=== PATIENT | male | born 1945 | race Caucasian/White ===

== ENCOUNTER 2017-02-07 08:34 | Day surgery (SDC) | payer MEDICARE, BC ==
[~2017-02-07] VITALS: Ht 177.8 cm; Wt 100.0 kg
[~2017-02-07 08:34] MED LIST: ALDACTONE25 MG PO; ASPIRIN 81 MG E81 MG PO; BUMEX2 MG PO; CORDARONE200 MG PO; COREG6.25 MG PO; COZAAR25 MG PO; LANOXIN125 MCG PO; LIPITOR40 MG PO; RESTORIL7.5 MG PO
[2017-02-07] MEDS ORDERED: AMBIEN10 MG PO (10:34)
[2017-02-07] MEDS ORDERED: ZANAFLEX4 MG PO (10:35)
[2017-02-07 10:44] VITALS: BP 104/56; Ht 177.8 cm; Wt 100.0 kg
[2017-02-07 11:28] LABS: HEMATOCRIT 40.7 % (42.0-54.0); HEMOGLOBIN 13.8 g/dL (13.5-17.5); MCH 30.4 pg (26.0-34.0); MCHC 33.9 g/dL (31.0-37.0); MCV 89.6 fL (80.0-100.0); MEAN PLATELET VOLUME 9.9 fL (7.4-10.4); RBC 4.54 10x6/uL (4.20-6.10); RDW 14.9 % (11.5-14.5); WBC 5.5 10x3/uL (4.8-10.8)
--- NOTE | 2017-02-07 11:32 | NUR ---
1132-MAGNET APPLIED TO AICD/PACEMAKER BY Louis CALIXTO INVASIVE CARDIOLOGIST
--- NOTE | 2017-02-07 11:37 | NUR ---
1137-SPOKE WITH PILLO ([facility])STATES AFTER CAUTERY COMPLETE, REMOVE MAGNET FROM AICD/PACEMATER & NO FURTHER CALIBRATION NEEDED.
[2017-02-07 11:38] LABS: ANION GAP 15.4 mmol/L (8-16); CALCIUM 8.9 mg/dL (8.5-10.1); CARBON DIOXIDE 26.9 mmol/L (21.0-32.0); CREATININE - SERUM 1.3 mg/dL (0.6-1.3); POTASSIUM - SERUM 4.3 mmol/L (3.5-5.1)
--- NOTE | 2017-02-07 13:10 | NUR ---
DISCHARGE INSTRUCTIONS REVIEWED WITH PATIENT AND SPOUSE. DISCHARGED HOME VIA WHEELCHAIR TO PRIVATE VEHICLE WITH SPOUSE
--- NOTE | 2017-02-08 09:13 | PRO ---
PATIENT:AUGUSTIN FINNEGAN MEDICAL RECORD: [id number] : 47 LOCATION:[facility] ADMISSION DATE: 02/07/17 PROCEDURE PERFORMED BY: GAEL KAPOOR DO DATE OF PROCEDURE: 02/07/2017 PROCEDURE: Colonoscopy with polypectomy. INDICATIONS FOR PROCEDURE: Family history positive for cancer of the GI tract, gas and bloating, polyp of the colon in past examinations. SCOPE: Olympus video pediatric colonoscope. MEDICATIONS: Propofol 250 mg IV per anesthesia. WITHDRAWAL TIMIE: 9 minutes. ESTIMATED BLOOD LOSS: Minimal. COMPLICATIONS: None. LAST COLONOSCOPY: 08/09/2013. FINDINGS: Informed consent was given. The patient was made comfortable with the above medication. After reaching an adequate level of sedation by slow IV push, the patient was placed on his left side. A digital rectal examination was performed. There were moderate sized external hemorrhoids without active bleeding present on the digital rectal examination. The endoscope was then advanced under direct visualization through the rectum to the cecum with visualization of the appendiceal orifice and ileocecal valve. The scope was slowly withdrawn and mucosa was carefully examined. Prep quality was good. There was 1 benign-appearing sessile polyp located in the ascending colon which measured approximately 3-4 mm in diameter. It was removed using a hot snare in 1 piece and completely retrieved. There were 2 polyps in the transverse colon which were benign-appearing and sessile. They ranged in size from 3 mm-6 mm in diameter. They were both removed using hot snare in 1 piece and completely retrieved. There was evidence of moderate to severe diverticulosis from the distal transverse colon distally to the sigmoid colon. There was no evidence of diverticulitis. Retroflexion was performed in the rectum with visualization of moderate sized internal hemorrhoids without bleeding stigmata. The scope was then withdrawn from the patient. The patient tolerated the procedure well and there were no complications. IMPRESSIONS: 1. Multiple polyps as described above, removed using hot snare. 2. Moderate to severe diverticulosis of the left side of the colon. 3. Moderate sized internal and external hemorrhoids without active bleeding. PLAN AND RECOMMENDATIONS: 1. Discharge home when recovery parameters are met. 2. Continue current medications. 3. High fiber diet. 4. Follow up biopsy specimen results. 5. Anticipate a repeat colonoscopy in 3 years for suspected tubular adenomatous polyps, totalling 3. PROCEDURE NOTE [id number] AUGUSTIN FINNEGAN 6. Follow up in GI clinic as needed for symptoms. TRANSINT:[id number] Voice Confirmation ID: [id number] DOCUMENT ID: [id number] GAEL KAPOOR DO at 0913 CC: [id number] DICTATION DATE: 02/07/17 1154 CREDIT REVIEW MANAGER: 02/07/17 1730 [facility] 02/07/17 [place] [id number] [place] [id number]
== END 2017-02-07 13:10 | disposition home or self-care (01) ==
LOC: D.OPS 08:34
PROVIDERS: Anesthesiology
DX: Z86.010 Personal history of colon polyps (principal); D12.2 Benign neoplasm of ascending colon; D12.3 Benign neoplasm of transverse colon; K57.30 Diverticulosis of large intestine without perforation or abscess without bleeding; K64.4 Residual hemorrhoidal skin tags; K64.8 Other hemorrhoids; I25.10 Atherosclerotic heart disease of native coronary artery without angina pectoris; I10 Essential (primary) hypertension; K21.9 Gastro-esophageal reflux disease without esophagitis; I50.9 Heart failure, unspecified